=== PATIENT | female | born 1975 | race Caucasian/White ===

== ENCOUNTER 2017-05-01 09:21 | Emergency (ER) | payer BC, OTHER ==
--- NOTE | 2017-05-01 09:32 | UC ---
Throat Pain/Nasal Curt HPI - HPI Summary HPI Summary: daughter has the Flu. she has had cough and chest congestion for 6 days feels worse at night no increase in Mdi use Did get flu vaccine - History of Current Complaint Chief Complaint: UCRespiratory Stated Complaint: SORE THROAT, AND CONGESTION Time Seen by Provider: 05/01/17 09:30 Hx Obtained From: Patient ?: No Onset/Duration: Sudden Onset, Lasting Days - 6, Still Present Severity: Moderate Cough: Nonproductive Associated Signs & Symptoms: Positive: Nasal Discharge - Allergies/Home Medications Allergies/Adverse Reactions: Allergies Allergy/AdvReac Type Severity Reaction Status Date / Time Penicillins [PCN] Allergy Rash Verified 05/01/17 09:28 Home Medications: Home Medications Budesonide/Formote 80/4.5(NF) [Symbicort 80/4.5 (NF)] 1 puff INH DAILY 05/01/17 [History Confirmed 05/01/17] Spiriva Inhaler DEVICE* [Tiotropium Inhaler DEVICE*] 1 puff INH DAILY 05/01/17 [ History Confirmed 05/01/17] PMH/Surg Hx/FS Hx/Imm Hx Previously Healthy: No Respiratory History: Asthma - Family History Known Family History: Positive: None - Social History Occupation: Employed Full-time Lives: With Family Alcohol Use: None Substance Use Type: None - Immunization History Most Recent Influenza Vaccination: 2016/2017 Vaccination Up to Date: Yes Review of Systems Constitutional: Fatigue Skin: Negative Eyes: Negative ENT: Sore Throat, Nasal Discharge Respiratory: Cough Cardiovascular: Negative Gastrointestinal: Negative Genitourinary: Negative Motor: Negative Neurovascular: Negative Musculoskeletal: Negative Neurological: Negative Psychological: Negative Is Patient Immunocompromised?: No All Other Systems Reviewed And Are Negative: Yes Physical Exam Triage Information Reviewed: Yes Appearance: Well-Appearing, No Pain Distress, Well-Nourished Vital Signs Reviewed: Yes Eye Exam: Normal Eyes: Positive: Conjunctiva Clear ENT Exam: Normal ENT: Positive: Normal ENT inspection, Hearing grossly normal, Pharynx normal, TMs normal, Uvula midline. Negative: Nasal congestion, Nasal drainage, Tonsillar swelling, Tonsillar exudate, Trismus, Muffled voice, Hoarse voice, Dental tenderness, Sinus tenderness Dental Exam: Normal Neck exam: Normal Neck: Positive: Supple, Nontender, No Lymphadenopathy Respiratory Exam: Normal Respiratory: Positive: Chest non-tender, Lungs clear, Normal breath sounds, No respiratory distress, No accessory muscle use Cardiovascular Exam: Normal Cardiovascular: Positive: RRR, No Murmur, Pulses Normal, Brisk Capillary Refill Musculoskeletal Exam: Normal Musculoskeletal: Positive: Strength Intact, ROM Intact, No Edema Neurological Exam: Normal Neurological: Positive: Alert, Muscle Tone Normal Psychological Exam: Normal Skin Exam: Normal Diagnostics - Laboratory Diagnostic Studies Completed/Ordered: influenza A/B (-) RST (-) Throat Pain/Nasal Course/Dx - Course Assessment/Plan: increase fluids, otc medications for symptom relief Zithromax follow with pcp prn - Differential Dx/Diagnosis Provider Diagnoses: Acute Bronchitis Discharge - Discharge Plan Condition: Stable Disposition: HOME Prescriptions: Azithromycin TAB* [Zithromax TAB (Z-SILVERIO) 250 mg #6 tabs] 2 tab PO .TODAY, THEN 1 DAILY #1 silverio Patient Education Materials: Acute Bronchitis (ED) Referrals: Francia Hill MD [Primary Care Provider] - If Needed
[2017-05-01 10:09] VITALS: BP 101/74
== END 2017-05-01 10:18 | disposition home or self-care (01) ==
LOC: UCEAST 09:21
DX: J20.9 Acute bronchitis, unspecified (principal); J45.909 Unspecified asthma, uncomplicated; Z88.0 Allergy status to penicillin
CPT/HCPCS: 87502; 87651; 99202; G0463

== ENCOUNTER 2017-08-31 07:01 | Emergency (ER) | payer OTHER ==
[2017-08-31 07:13] VITALS: BP 124/70
[2017-08-31] MEDS ORDERED: Albuterol/Ipratropium NEB.SOL* Albuterol 2.5 MG/Ipratropium 0.5 MG 3 ML INH ONE (07:22)
--- NOTE | 2017-08-31 07:22 | UC ---
Ervin Orta Gabriel, scribed for Parvin Yanez MD on 08/31/17 at 0722 . Throat Pain/Nasal Curt HPI - HPI Summary HPI Summary: This patient is a 42 year old F presenting to [facility] with a chief complaint of sinus congestion since 08-28-17. The patient rates the pain 5/10 in severity. Symptoms alleviated by Nyquil. Patient reports KELLY, productive cough of yellow sputum, SOB, weakness, fatigue, ear pain, chills, and sore throat. Patient denies n/v and fever. Hx asthma and uses symbicort daily. Pt has been feeling sob like asthma - has been using albuterol MDI with short term relief. last used this am. Pt has nebulizer - not using. Unknown last prednisone, hospital for asthma Pt denies chance of . Patients medication reviewed this visit. - History of Current Complaint Chief Complaint: UCGeneralIllness Stated Complaint: CONGESTION HEAD/CHEST Time Seen by Provider: 08/31/17 07:09 Hx Obtained From: Patient Hx Last Menstrual Period: jan ?: No Onset/Duration: Lasting Days, Still Present Severity: Moderate Pain Intensity: 5 Pain Scale Used: 0-10 Numeric Cough: Productive - yellow Associated Signs & Symptoms: Positive: Sinus Discomfort. Negative: Fever, Vomiting - Allergies/Home Medications Allergies/Adverse Reactions: Allergies Allergy/AdvReac Type Severity Reaction Status Date / Time Penicillins Allergy Intermediate Rash Verified 08/31/17 07:13 Home Medications: Home Medications Albuterol 2.5MG/3ML (0.083%)* [Ventolin 2.5 MG/3 ML NEB.KEVYN*] 2 puff INH Q4HR PRN 08/31/17 [History Confirmed 08/31/17] PMH/Surg Hx/FS Hx/Imm Hx Previously Healthy: No Respiratory History: Asthma - Surgical History Surgical History: None Surgery Procedure, Year, and Place: denies - Family History Known Family History: Negative: Cardiac Disease, Hypertension, Diabetes, Renal Disease, Respiratory Disease, Seizure Disorder, Blood Disorder - Social History Occupation: Employed Full-time Lives: With Family Alcohol Use: None Substance Use Type: None Smoking Status (MU): Former Smoker - Immunization History Most Recent Influenza Vaccination: 2016/2017 Most Recent Tetanus Shot: UNK Vaccination Up to Date: Yes Review of Systems Constitutional: Chills, Fatigue ENT: Sore Throat, Ear Ache, Sinus Congestion Respiratory: Shortness Of Breath, Cough Gastrointestinal: Negative Genitourinary: Negative Motor: Negative Neurovascular: Negative Neurological: Headache, Weakness All Other Systems Reviewed And Are Negative: Yes Physical Exam Triage Information Reviewed: Yes Appearance: Well-Appearing, No Pain Distress, Well-Nourished Vital Signs: Initial Vital Signs Temp 99.6 F 08/31/17 07:08 Pulse 111 08/31/17 07:08 Resp 19 08/31/17 07:08 BP 124/70 08/31/17 07:08 Pulse Ox 95 08/31/17 07:08 Eye Exam: Normal Eyes: Positive: Conjunctiva Clear ENT: Positive: Hearing grossly normal, Pharynx normal, Nasal congestion, TMs normal, Other - turbinates inflammed and boggy Dental Exam: Normal Neck exam: Normal Neck: Positive: Supple, Nontender, No Lymphadenopathy Respiratory Exam: Normal Respiratory: Positive: Other: - coarse cough scattered wheeze no retraction Cardiovascular Exam: Normal Cardiovascular: Positive: RRR - borderline tachy, No Murmur, Pulses Normal Abdominal Exam: Normal Abdomen Description: Positive: Nontender, No Organomegaly, Soft Bowel Sounds: Positive: Present Musculoskeletal Exam: Normal Musculoskeletal: Positive: Strength Intact Neurological Exam: Normal Neurological: Positive: Alert Psychological Exam: Normal Psychological: Positive: Normal Response To Family Skin Exam: Normal Re-Evaluation - Re-Evaluation First Eval Re-Evaluation Time: 07:51 Change: Improved Comment: Pt states her chest congestion feels better after the breathing treatment. Lungs are clear to auscultation. She declines nasal spray at this time. Will Rz zithromax. Albuterol. hydrate. secretion precaution. declined work note Throat Pain/Nasal Course/Dx - Course Assessment/Plan: Pt with coarse cough, nasal congestion, productive yellow sputum. h/o asthma. diffuse wheeze and congesiton on exam. Will give duoneb and reassess. likely prednisone, albuterol, abx - Differential Dx/Diagnosis Provider Diagnoses: acute bronchitis. sinusitis Discharge - Sign-Out/Discharge Documenting (check all that apply): Discharge/Admit/Transfer - Discharge Plan Condition: Stable Disposition: HOME Prescriptions: Albuterol 2.5MG/3ML (0.083%)* [Ventolin 2.5 MG/3 ML NEB.KEVYN*] 2.5 mg INH Q4H PRN #30 neb.kevyn PRN Reason: wheeze Azithromycin TAB* [Zithromax TAB (Z-SILVERIO) 250 mg #6 tabs] 2 tab PO .TODAY, THEN 1 DAILY #1 silverio Patient Education Materials: Sinusitis (ED), Acute Bronchitis (ED) Referrals: Francia Hill MD [Primary Care Provider] - Additional Instructions: - Stay well hydrated. Drink plenty of non-alcoholic, non-caffinated beverages. - Alternate ibuprofen (Advil, Motrin) 600mg and Tylenol every 3 hours for pain or fever. Take with food. Do NOT take for more than 4-5 days. - These infections are spread by secretions - do NOT share eating or drinking utensils - clean items you share with other people such as cell phones, computer mouse, TV remote, computer tablets,etc. Once you have been antibiotics for 2 days, change your toothbrush and your pillowcase. - get plenty of restful sleep - humidify the air in the room where you sleep - boil water, run a hot steam shower, vaporizer, cups of water by heat register - okay to take over the counter decongestant and cough medication - Use your albuterol every 4 hours today, then every 4 hours as needed -Contact your doctor or return with questions or concerns - Billing Disposition and Condition Condition: STABLE Disposition: HOME The documentation as recorded by the Ervin villa Gabriel accurately reflects the service I personally performed and the decisions made by me, Parvin Yanez MD.
== END 2017-08-31 07:55 | disposition home or self-care (01) ==
LOC: UCEAST 07:01
DX: J20.9 Acute bronchitis, unspecified (principal); J32.9 Chronic sinusitis, unspecified; J45.909 Unspecified asthma, uncomplicated; Z88.0 Allergy status to penicillin; Z87.891 Personal history of nicotine dependence
CPT/HCPCS: 99212; A9270-GY; G0463

== ENCOUNTER 2017-09-02 15:49 | Emergency (ER) | payer OTHER ==
[2017-09-02 16:02] VITALS: BP 107/80
[2017-09-02] MEDS ORDERED: predniSONE TAB* 20 MG PO ONE (16:14)
[2017-09-02] MEDS ORDERED: Albuterol/Ipratropium NEB.SOL* Albuterol 2.5 MG/Ipratropium 0.5 MG 3 ML INH ONE (16:15)
--- NOTE | 2017-09-02 16:20 | UC ---
Respiratory Complaint HPI - HPI Summary HPI Summary: 42 y/o female presents to the urgent care c/o productive cough w/ yellowish sputum since Tuesday08/28/2017. Pt reports she was seen here at the clinic 2 days ago and Rx Z-alix and Inhaler, however she states symptoms are not improving and she is having SOB w/ wheezing. She has been using he inhaler w/o any relief. Pt denies fever, chest pain, dizziness, abdominal pain, N/V/D. LMP: 06/09/2017 and has not been sexually active lately. Pt doesn't smoke - History of Current Complaint Chief Complaint: UCRespiratory Stated Complaint: RESP COMPLAINT Time Seen by Provider: 09/02/17 16:04 Hx Obtained From: Patient Hx Last Menstrual Period: 05/27/17 Onset/Duration: Gradual Onset, Lasting Days - 5 days, Still Present, Worse Since - yesterday Timing: Intermittent Episodes Severity Initially: Mild Severity Currently: Moderate Pain Intensity: 0 Pain Scale Used: 0-10 Numeric Character: Cough: Productive, Sputum Description: - yellowish Aggravating Factors: Recumbent Position Alleviating Factors: Bronchodilator, Other - Z-alix Associated Signs And Symptoms: Positive: Wheezing, URI, Sinus Discomfort. Negative: Fever, Chills, Hemoptysis, Dizziness, Nasal Congestion - Risk Factors Pulmonary Embolism Risk Factors: Negative Cardiac Risk Factors: Negative Pseudomonas Risk Factors: Negative Tuberculosis Risk Factors: Negative - Allergies/Home Medications Allergies/Adverse Reactions: Allergies Allergy/AdvReac Type Severity Reaction Status Date / Time Penicillins Allergy Intermediate Rash Verified 09/02/17 16:02 PMH/Surg Hx/FS Hx/Imm Hx Previously Healthy: Yes Respiratory History: Asthma Other Respiratory History: Emphysema - Surgical History Surgical History: None Surgery Procedure, Year, and Place: denies - Family History Known Family History: Positive: None - Pt denies FMHX Negative: Cardiac Disease, Hypertension, Diabetes, Renal Disease, Respiratory Disease, Seizure Disorder, Blood Disorder - Social History Occupation: Employed Full-time Lives: With Family Alcohol Use: None Substance Use Type: None Smoking Status (MU): Former Smoker - Immunization History Most Recent Influenza Vaccination: Most Recent Tetanus Shot: UNK Vaccination Up to Date: Yes Review of Systems Constitutional: Negative Skin: Negative Eyes: Negative ENT: Nasal Discharge, Sinus Congestion Respiratory: Shortness Of Breath, Cough - productive w/ yellowish sputum, Other - wheezing Cardiovascular: Negative Gastrointestinal: Negative Genitourinary: Negative Motor: Negative Neurovascular: Negative Musculoskeletal: Negative Neurological: Negative Psychological: Negative Is Patient Immunocompromised?: No All Other Systems Reviewed And Are Negative: Yes Physical Exam - Summary Physical Exam Summary: Vital Signs Reviewed: Yes General: well developed, well nourished female sitting in the examining table w/ o any apparent distress Eyes: Positive: Conjunctiva Clear - PERRLA, EOMI, fundi grossly normal ENT: Positive: Normal ENT inspection, Hearing grossly normal, Pharynx normal, Nasal congestion - edematous and erythematous nasal mucosa, Nasal drainage - yellowish drainage, TMs normal. Negative: Tonsillar swelling, Tonsillar exudate Neck: Positive: Supple, Nontender, No Lymphadenopathy Respiratory: no orthopnea or dyspnea. Able to speak in full sentences, no retractions or accessory muscle use, no tripod position, stridor, or head bobbing. Positive breath sounds B/L . bilaterally lungs w/ scattered wheezing and rhonchi,no crackles or rales. Cardiovascular: Positive: RRR, No Murmur, Pulses Normal, Brisk Capillary Refill Abdomen Description: Positive: Nontender, No Organomegaly, Soft. Negative: CVA Tenderness (R), CVA Tenderness (L) Bowel Sounds: Positive: Present Musculoskeletal Exam: Normal Musculoskeletal: Positive: Strength Intact, ROM Intact, No Edema Neurological Exam: Normal Psychological Exam: Normal Skin Exam: Normal Triage Information Reviewed: Yes Vital Signs: Initial Vital Signs Temp 98.2 F 09/02/17 15:55 Pulse 84 09/02/17 15:55 Resp 18 09/02/17 15:55 BP 107/80 09/02/17 15:55 Pulse Ox 96 09/02/17 15:55 Diagnostic Evaluation - Laboratory O2 Sat by Pulse Oximetry: 96 Respiratory Course/Dx - Course Course Of Treatment: 42 y/o female presents to the urgent care c/o productive cough w/ yellowish sputum since Tuesday08/28/2017. Pt reports she was seen here at the clinic 2 days ago and Rx Z-alix and Inhaler, however she states symptoms are not improving and she is having SOB w/ wheezing. She has been using he inhaler w/o any relief. Pt denies fever, chest pain, dizziness, abdominal pain, N/V/D. LMP: 06/09/2017 and has not been sexually active lately. Pt doesn't smoke. Hx obtained.Pt w/ bilaterally lungs w/ scattered wheezing and rhonchi on examination. Chest X-ray ordered: No acute cardiopulmonary disease observed as per radiologist. Asthma exacerbation: due to Acute Bronchitis: Duo neb Tx and prednisone PO given to the Pt to alleviate symptoms. Patient tolerated well treatment and lungs improved, mild wheezing only in posterior RT lung, Patient Advised to continue taking Z-alix and the Albuterol nebulizer tx and Rx prescribed PO,Tessalon tabs PO as directed below. The patient was recommended to increase fluid intake. Take medications as recommended. Patient recommended to return to the clinic or go to the nearest ER if symptoms do not improve or worsen. Patient understood and agree. Pt left the clinic hemodynamically Winsome frances&OX3 - Differential Dx/Diagnosis Differential Diagnosis/HQI/PQRI: Asthma, Bronchitis, Influenza, Lower Resp Infection, Sinusitis, Other Provider Diagnoses: 1- Acute asthma exacerbation due to bronchitis. 2- Wheezing Discharge - Sign-Out/Discharge Documenting (check all that apply): Discharge/Admit/Transfer - D/C home - Discharge Plan Condition: Stable Disposition: HOME Prescriptions: Benzonatate CAP* [Tessalon 100 MG CAP*] 100 mg PO TID PRN #21 cap PRN Reason: Cough predniSONE TAB* [Deltasone TAB*] 20 mg PO DAILY #8 tab Patient Education Materials: Asthma (ED), Acute Bronchitis (ED) Referrals: Francia Hill MD [Primary Care Provider] - 3 Days Additional Instructions: 1-Please continue taking Z-alix full course of antibiotic to avoid resistance. 2-Take Prednisone PO as directed starting tomorrow. First dose given at the clinic today. Continue using duoneb treatments at home. 3- Take Tessalon tabs PO to alleviate cough 4- If symptoms do not improve or worsen or your develop SOB with fever and severe wheezing please go immediately to the ER further evaluation and treatment. 5- F/u with your PCP in 2-3 days for further management on your Asthma - Billing Disposition and Condition Condition: STABLE Disposition: HOME
--- NOTE | 2017-09-02 16:41 | RAD ---
Indication: Cough, shortness of breath. 2 views of the chest including dual energy PA views demonstrate pectus excavatum deformity. Lung michaels are clear. IMPRESSION: Pectus excavatum deformity. No active cardiopulmonary disease is noted.
== END 2017-09-02 17:12 | disposition home or self-care (01) ==
LOC: UCEAST 15:49
DX: J45.901 Unspecified asthma with (acute) exacerbation (principal); R06.2 Wheezing
CPT/HCPCS: 71046; 99212; A9270-GY; G0463; J7512

== ENCOUNTER 2019-02-19 12:11 | Emergency (ER) | payer OTHER ==
[2019-02-19 12:33] VITALS: BP 101/66
--- NOTE | 2019-02-19 13:15 | UC ---
Knee Pain HPI - HPI Summary HPI Summary: 43-year-old female who was "wrestling around" 2 days ago when she twisted her right knee. She states most of the time it feels stable however once while feels like it once to give out. Patient is comfortable here. A knee immobilizer is placed for comfort. She is to follow-up with the orthopedist in 3 or 4 days if no improvement. - History of Current Complaint Chief Complaint: UCLowerExtremity Stated Complaint: knee INJURY Time Seen by Provider: 02/19/19 12:38 Hx Obtained From: Patient Hx Last Menstrual Period: november 2018 ?: No Onset/Duration: Sudden Onset, Still Present Severity Initially: Mild Severity Currently: Mild Pain Intensity: 6 Character: Dull, Aching Aggravating Factor(s): Movement, Weight Bearing Alleviating Factor(s): Rest Associated Signs And Symptoms: Positive: Negative - Patient states occasionally her knee feels like it wants to give out. Able to Bear Weight: Yes - Allergies/Home Medications Allergies/Adverse Reactions: Allergies Allergy/AdvReac Type Severity Reaction Status Date / Time Penicillins Allergy Intermediate Rash Verified 02/19/19 12:30 Home Medications: Home Medications Albuterol HFA INHALER* [Ventolin HFA Inhaler*] 2 puff INH Q6HR PRN 02/19/19 [ History Confirmed 02/19/19] PMH/Surg Hx/FS Hx/Imm Hx Previously Healthy: Yes - Surgical History Surgical History: Yes Surgery Procedure, Year, and Place: T&A, tubes in ears as a child - Family History Known Family History: Positive: None - Pt denies FMHX Negative: Cardiac Disease, Hypertension, Diabetes, Renal Disease, Respiratory Disease, Seizure Disorder, Blood Disorder - Social History Alcohol Use: Occasionally Substance Use Type: None Smoking Status (MU): Former Smoker - Immunization History Most Recent Influenza Vaccination: 2017/2017 Most Recent Tetanus Shot: UNK Vaccination Up to Date: Yes Review of Systems All Other Systems Reviewed And Are Negative: Yes Musculoskeletal: Positive: Other: - Mild pain in the back of the knee with flexion. Is Patient Immunocompromised?: No Physical Exam Triage Information Reviewed: Yes Appearance: Well-Appearing, Well-Nourished Vital Signs: Initial Vital Signs Temp 98.5 F 02/19/19 12:27 Pulse 78 02/19/19 12:27 Resp 18 02/19/19 12:27 BP 101/66 02/19/19 12:27 Pulse Ox 97 02/19/19 12:27 Vital Signs Reviewed: Yes Musculoskeletal: Positive: Strength Intact, ROM Intact, Other: - Good peripheral pulses neuro sensation capillary refill. Good flexion and extension without difficulty. Patellar and knee ligaments are intact. Patient is able to lift her leg completely up off the table. Neurological: Positive: Alert, Muscle Tone Normal Psychological Exam: Normal Skin Exam: Normal Skin: Positive: Other - No bruising, erythema, swelling or deformity. Knee Pain Course/Dx - Course Course Of Treatment: Right knee x-ray:Indication: Right knee injury. 4 views of the right knee demonstrates no fracture or dislocation. No other bone or joint abnormality is identified. IMPRESSION: No fracture of the right knee is noted. No joint effusion is noted. - Differential Dx/Diagnosis Provider Diagnosis: Knee strain Discharge ED - Sign-Out/Discharge Documenting (check all that apply): Patient Departure All imaging exams completed and their final reports reviewed: Yes - Discharge Plan Condition: Good Disposition: HOME Patient Education Materials: Knee Pain (ED) Referrals: Francia Hill MD [Primary Care Provider] - Jeff Cullen MD [Medical Doctor] - Additional Instructions: Apply ice and elevate as much as possible. Wear the knee immobilizer for comfort. Definite follow-up with the orthopedist if no improvement in 4 or 5 days or if your knee feels like it's going to give out. He may take Tylenol or ibuprofen for pain. - Billing Disposition and Condition Condition: GOOD Disposition: Home
== END 2019-02-19 13:55 | disposition home or self-care (01) ==
LOC: UCEAST 12:11
DX: S86.911A Strain of unspecified muscle(s) and tendon(s) at lower leg level, right leg, initial encounter (principal); Z88.0 Allergy status to penicillin; Z87.891 Personal history of nicotine dependence; X50.1XXA Overexertion from prolonged static or awkward postures, initial encounter; Y93.72 Activity, wrestling; Y92.9 Unspecified place or not applicable
CPT/HCPCS: 99212; G0463